=== PATIENT | female | born 1985 | race African-American/Black ===

== ENCOUNTER 2016-06-11 04:13 | Emergency (ER) | payer OTHER ==
[2016-06-11 06:08] LABS: URINE APPEARANCE CLEAR; URINE BLOOD NEG (NEG); URINE COLOR DK YELLOW; URINE GLUCOSE NEG (NEG); URINE KETONE TRACE (NEG); URINE LEUKOCYTE ESTERASE NEG (NEG); URINE NITRATE NEG (NEG); URINE PH 5.5 (5-8); URINE PROTEIN TRACE (NEG); URINE SPECIFIC GRAVITY 1.045 (1.003-1.035)
[2016-06-11 06:13] LABS: URINE BILIRUBIN NEG (NEG)
[2016-06-11 07:15] LABS: CULTURE INDICATED? NO
[2016-06-14 20:25] LABS: CHLAMYDIA TRACH Detected (Not Detected); N GONOR Not Detected (Not Detected)
== END 2016-06-11 06:46 | disposition home or self-care (01) ==
LOC: CED 04:13
PROVIDERS: Nurse Practitioner Family
DX: A59.09 Other urogenital trichomoniasis (principal); N76.0 Acute vaginitis; F17.210 Nicotine dependence, cigarettes, uncomplicated; Z98.51 Tubal ligation status
CPT/HCPCS: 81003; 84703; 87491; 87591; 87808; 87905; 96372; 99283; 99284; J0696